=== PATIENT | male | born 1950 | race Caucasian/White ===

== ENCOUNTER → 2018-10-11 | Outpatient (CLI) | payer OTHER ==
[~2018-10-11] MED LIST: ANTIACID PO; ASPI325 PO; ASPI81EC PO; DOXY100 PO; UBID100 PO
== END ==
LOC: LAB SHORT 15:15 → LAB 15:15
DX: M70.22 Olecranon bursitis, left elbow (principal)
CPT/HCPCS: 87070; 87075; 87205

== ENCOUNTER 2019-05-06 07:52 | Day surgery (SDC) | payer OTHER ==
[~2019-05-06] VITALS: Ht 177.8 cm; Wt 78.3 kg
[~2019-05-06 07:52] MED LIST changes: +ESCI10
[2019-05-06] MEDS ORDERED: FISH OIL + D31 EACH (08:33)
--- NOTE | 2019-05-06 11:56 | NUR ---
05/06/19 1156 Jami Maynard LATE ENTRY---WHEN FIRST DOSE OF PROPOFOL WAS PUSHED, I NOTICED THAT IT WAS LEAKING OUT OF THE IV CATHETER WHERE THE TUBING IS ATTACHED. I STOPPED THE IV FLUID, TURNED ON LIGHTS, UNTAPED AND CLEANED UP THE AREA, RETAPED AND RESTARTED IV SEDATION. THIS CAUSED A DELAY IN THE PROCEDURE START FROM WHEN PATIENT WENT INTO THE ROOM.
== END 2019-05-06 10:06 | disposition home or self-care (01) ==
LOC: ORSCSDS 07:52
PROVIDERS: Internal Medicine Gastroenterology
PROC: 0DJD8ZZ Inspection of Lower Intestinal Tract, Via Natural or Artificial Opening Endoscopic (ICD-10-PCS; principal; 2019-05-06 09:00)
DX: Z12.11 Encounter for screening for malignant neoplasm of colon (principal); K57.30 Diverticulosis of large intestine without perforation or abscess without bleeding; E11.9 Type 2 diabetes mellitus without complications; Z87.891 Personal history of nicotine dependence
CPT/HCPCS: 82947; J0461; J2405; J2704; J7120